=== PATIENT | male | born 1990 | race Caucasian/White ===

== ENCOUNTER 2022-04-10 11:24 | Emergency (ER) | payer BC, SELFPAY ==
[2022-04-10 12:51] VITALS: BP 154/99; PULSE 99; RESP 20; TEMP 36.8; O2SAT 98
--- NOTE | 2022-04-10 14:13 | ED.URI ---
HPI - URI/Sore Throat General Chief Complaint: Upper Respiratory Infection Stated Complaint: sorethroat,cough,runny nose Time Seen by Provider: 04/10/22 14:09 Source: patient Mode of arrival: ambulatory Limitations: no limitations History of Present Illness HPI Narrative: Patient presents today with a 3 day history of sore throat, rhinorrhea, and hoarseness. Denies fever or shortness of breath. Currently rates pain 4/10 and has been taking DayQuil and NyQuil with relief. Reports daughter was recently diagnosed with strep throat. Related Data Allergies Allergy/AdvReac Type Severity Reaction Status Date / Time No Known Allergies Allergy Verified 04/10/22 12:48 Review of Systems Review of Systems: CONSTITUTIONAL: Denies body aches, fever, chills, or sweats. EYES: Denies visual changes, redness, or discharge. ENT: Denies congestion, otalgia.+ Sore throat, hoarseness, rhinorrhea CARDIOVASCULAR: Denies chest pain, palpitations, or edema. RESPIRATORY: Denies cough or dyspnea. GASTROINTESTINAL: Denies abdominal pain, nausea, vomiting, or diarrhea. GENITOURINARY: Denies dysuria or hematuria. SKIN: Denies rash, itching, or wounds. MUSCULOSKELETAL: Denies back pain, joint pain, or myalgia. NEUROLOGIC: Denies headache, numbness, tingling, or weakness. PSYCH: Denies depression or anxiety. PMFSH Comments At time of signature, I have reviewed and agree with nursing past medical, surgical, social and family history unless otherwise noted. Please see nursing chart for further information. There is no relevant family history pertinent to the presenting complaint Exam Narrative: GENERAL: Well-appearing, well-nourished, and in no acute distress. HEAD: Normocephalic, atraumatic. EYES: EOMI. No redness or drainage. Conjunctivae normal. ENT: Mucous membranes pink and moist. Nares clear. No rhinorrhea. TMs normal bilaterally. Throat erythematous and mildly edematous without exudate. Uvula midline. NECK: Normal AROM. Supple. No lymphadenopathy. CHEST: No respiratory distress. Clear to auscultation. HEART: Regular rate and rhythm. No murmur appreciated. Normal peripheral pulses. EXTREMITIES: Normal range of motion. No edema. SKIN: Warm, dry, no rash. Capillary refill normal. Normal skin turgor. NEURO: No focal deficits. Alert and oriented x3. Gait steady. PSYCH: Normal affect. No signs of depression or anxiety. Course Course Level of Care: Express Care Visit Vital Signs Vital signs: Vital Signs Temperature 98.2 F 04/10/22 12:51 Pulse Rate 99 04/10/22 12:51 Respiratory Rate 20 04/10/22 12:51 Blood Pressure 154/99 H 04/10/22 12:51 Pulse Oximetry 98 04/10/22 12:51 Oxygen Delivery Room Air 04/10/22 12:51 Temperature 98.2 F 04/10/22 12:51 Pulse Rate 99 04/10/22 12:51 Respiratory Rate 20 04/10/22 12:51 Blood Pressure 154/99 H 04/10/22 12:51 Pulse Oximetry 98 04/10/22 12:51 Oxygen Delivery Room Air 04/10/22 12:51 Reviewed. Pt has been instructed to follow up with his PCP regarding his elevated blood pressure today. MDM - URI/Sore Throat Differential Diagnosis Differential diagnosis: Likely upper respiratory infection, viral infection, pharyngitis and other ( strep throat) Lab Data Attestation: I reviewed the patient's lab results. Labs: Strep Screen Positive Group A Strep *(Reference Range: Negative)* Critical Care Time Critical Care Time Critical Care Time: No Discharge Plan Discharge Clinical Impression: Strep throat Patient Disposition: Home, Self-Care Condition: Stable Instructions: Antibiotic Form, Strep Throat (DC) Additional Instructions: You have tested positive for strep throat. Please take the amoxicillin as prescribed until gone. Continue [id number] medication at home for pain if needed. you will be contagious for 48 hours after starting the amoxicillin. Follow-up with [facility]
== END 2022-04-10 14:57 | disposition home or self-care (01) ==
PROVIDERS: Emergency Provider Nurse Practitioner
DX: J02.0 Streptococcal pharyngitis (principal)
CPT/HCPCS: 87880; 99203; G0463